=== PATIENT | female | born 1995 | race African-American/Black ===

== ENCOUNTER 2018-02-03 21:15 | Emergency (ER) | payer MEDICAID ==
[~2018-02-03] VITALS: Ht 162.6 cm; Wt 54.4 kg
[2018-02-03 22:32] LABS: Basophils # (auto) 0.1 uL; Basophils % (auto) 1.2 % (0.0-2.0); Eosinophils # (auto) 0.1 uL; Eosinophils % (auto) 2.5 % (0.0-7.0); Hematocrit 40.9 % (36.0-46.0); Hemoglobin 13.8 g/dL (12.2-16.2); Lymphocytes % (auto) 44.4 % (10.0-50.0); Mean Corpuscular Hemoglobin 29.5 pg (28.0-32.0); Mean Corpuscular Hgb Conc. 33.8 g/dL (32.0-36.0); Mean Corpuscular Volume 87.3 fL (80.0-100.0); Monocytes # (auto) 0.5 uL; Monocytes % (auto) 10.6 % (0.0-12.0); Neutrophils # (auto) 1.9 uL; Neutrophils % (auto) 41.3 % (37.0-80.0); Nucleated Red Blood Cells % 0.1 %; Platelet Count (auto) 185 10^3/uL (140-450); Red Blood Cells 4.68 10^6/uL (4.0-5.20); Red Cell Distribution Width 12.4 % (11.8-14.3); White Blood Cell 4.5 10^3/uL (4.4-10.8)
[2018-02-03 22:46] LABS: Albumin 4.1 g/dL (3.4-5.0); BUN/Creatinine Ratio 13.1; Calcium 8.3 mg/dL (8.5-10.1); Potassium 3.4 mmol/L (3.5-5.1)
[2018-02-03 22:49] LABS: Bilirubin, Total 0.8 mg/dL (0.2-1.0); Total Protein 7.6 g/dL (6.4-8.2)
[2018-02-03] MEDS ORDERED: methylPREDNISolone SOD SUCC 125 MG/2 ML VL IV ONE (23:45)
[2018-02-03] MEDS ORDERED: SODIUM CHLORIDE 0.9% 500 ML IV ONE (23:45)
[2018-02-03] MEDS ORDERED: FAMOTIDINE (10MG/ML) 2ML VL IV ONE (23:45)
[2018-02-04 00:10] LABS: Urine Bacteria FEW /hpf (None Seen); Urine Blood 2+ /uL (Negative); Urine Mucus FEW (None Seen); Urine WBC 3 /hpf (0 - 5)
[2018-02-04 01:39] VITALS: BP 128/73
== END 2018-02-04 02:11 | disposition home or self-care (01) ==
LOC: ER 21:15
DX: T78.40XA Allergy, unspecified, initial encounter (principal); K29.70 Gastritis, unspecified, without bleeding
CPT/HCPCS: 36415; 80053; 81001; 81025; 82150; 83690; 84702; 85025; 96361; 96374; 96375; 99283; J2930; J3490; J7030

== ENCOUNTER 2023-11-22 14:53 | Emergency (ER) | payer MEDICAID ==
[~2023-11-22] VITALS: Ht 162.6 cm; Wt 61.0 kg
[2023-11-22 15:14] VITALS: BP 145/88; PULSE 101; RESP 18; O2SAT 99
[2023-11-22 15:35] LABS: Basophils # (auto) 0.1 10 ^3/uL (0-0.2); Basophils % (auto) 1.3 % (0.0-2.0); Eosinophils # (auto) 0.1 10 ^3/uL (0-0.8); Lymphocytes # (auto) 1.9 10 ^3/uL (0.4-5.4); Lymphocytes % (auto) 46.4 % (10.0-50.0); Mean Corpuscular Hemoglobin 29.5 pg (28.0-32.0); Mean Corpuscular Hgb Conc. 34.2 g/dL (32.0-36.0); Mean Corpuscular Volume 86.2 fL (80.0-100.0); Monocytes # (auto) 0.4 10 ^3/uL (0-1.3); Monocytes % (auto) 9.9 % (0.0-12.0); Neutrophils # (auto) 1.6 10 ^3/uL (1.6-8.6); Neutrophils % (auto) 39.4 % (37.0-80.0); Nucleated Red Blood Cells % 0.3 %; Platelet Count (auto) 228 10^3/uL (140-450); Red Blood Cells 4.76 10^6/uL (4.0-5.20); Red Cell Distribution Width 13.1 % (11.8-14.3); White Blood Cell 4.2 10^3/uL (4.4-10.8)
[2023-11-22 15:52] LABS: Urine Bacteria None Seen /hpf (None Seen)
[2023-11-22 16:12] LABS: Urine Blood TRACE /uL (Negative); Urine Clarity Turbid (Clear); Urine Color Colorless (Yellow); Urine Mucus FEW (None Seen); Urine Protein, UAD Negative (Negative); Urine Specific Gravity 1.015 (1.001-1.035); Urine Urobilinogen Normal (Negative); Urine WBC 2 /hpf (0 - 5); Urine pH 5.5 (5.0-9.0)
[2023-11-22] MEDS ORDERED: HYDROcodone-ACET 5/325MG TAB PO ONE (16:30)
== END 2023-11-22 17:46 | disposition left against medical advice (07) ==
LOC: ER 14:53
DX: R07.89 Other chest pain (principal); F41.9 Anxiety disorder, unspecified
CPT/HCPCS: 36415; 81001; 84484; 85025; 93005